=== PATIENT | male | born 1985 | race Caucasian/White ===

== ENCOUNTER 2018-08-23 09:07 | Emergency (ER) | payer SELFPAY ==
[2018-08-23] MEDS ORDERED: Sodium Chloride 0.9% 10 ML Syringe FLUSH PRN (09:30)
--- NOTE | 2018-08-23 09:58 | EDM.PDOC ---
ED HPI GENERAL MEDICAL PROBLEM - General Chief Complaint: Upper Extremity Injury/Pain Stated Complaint: INFECTION IN ARM Time Seen by Provider: 08/23/18 09:27 Source of Information: Reports: Patient History Limitations: Reports: No Limitations - History of Present Illness INITIAL COMMENTS - FREE TEXT/NARRATIVE: Patient is a 33-year-old male presents ED complaining of redness, swelling, and mild pain to the dorsal aspect of his right hand. This past Thursday he was vaccinating cattle and accidentally stuck the needle in his hand. The vaccination was pyramid 5 + presponse sQ. over the past few days the swelling and redness has worsened. He has felt feverish at times. No doctor in a few with admission to the ED. No redness streaking up his arm. No history of MRSA in the past. Has not noted any decreased range of motion of the wrist, fingers, and elbow. He offers no additional complaints. 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 ED EXAM, GENERAL - Physical Exam Exam: See Below Exam Limited By: No Limitations General Appearance: Alert, WD/WN, No Apparent Distress Ears: Hearing Grossly Normal Nose: Normal Inspection Throat/Mouth: Normal Voice, No Airway Compromise Neck: Normal Inspection, Supple Respiratory/Chest: No Respiratory Distress, Lungs Clear, Normal Breath Sounds, No Accessory Muscle Use, Chest Non-Tender Cardiovascular: Normal Peripheral Pulses, Regular Rate, Rhythm, No Murmur Peripheral Pulses: 2+: Radial (R) Extremities: Other (Swelling to the dorsal aspect of the right hand with redness noted. Redness does extend just past the wrist. He is able to flex and extend at the wrist with no issues. Sensory is intact. No further motor deficits noted. No drainage or open wound present.) Course - Vital Signs Last Recorded V/S: Last Vital Signs Temp 98.4 F 08/23/18 09:19 Pulse 73 08/23/18 09:19 Resp 18 08/23/18 09:19 BP 117/92 H 08/23/18 09:19 Pulse Ox 96 08/23/18 09:19 - Orders/Labs/Meds Orders: Active Orders 24 hr Category Date Time Status Peripheral IV Care [RC] . DIRECTED Care 08/23/18 09:30 Active Doxycycline [Vibramycin] 100 mg Med 08/23/18 09:59 Active Sodium Chloride 0.9% [Normal Saline] 100 ml IV ONETIME Sodium Chloride 0.9% [Saline Flush] Med 08/23/18 09:30 Active 10 ml FLUSH ASDIRECTED PRN Peripheral IV Insertion Adult [OM.PC] Routine Oth 08/23/18 09:30 Ordered Medication Orders Doxycycline Hyclate 100 mg/ (Sodium Chloride) 100 mls @ 100 mls/hr IV ONETIME ONE Stop: 08/23/18 10:58 Last Admin: 08/23/18 10:07 Dose: 100 mls/hr Sodium Chloride (Saline Flush) 10 ml FLUSH ASDIRECTED PRN PRN Reason: Keep Vein Open Last Admin: 08/23/18 10:08 Dose: 10 ml Labs: Laboratory Tests 08/23/18 08/23/18 Range/Units 09:40 09:40 WBC 10.37 H (4.23-9.07) K/mm3 RBC 5.22 (4.63-6.08) M/mm3 Hgb 15.6 (13.7-17.5) gm/L Hct 43.5 (40.1-51.0) % MCV 83.3 (79.0-92.2) fl MCH 29.9 (25.7-32.2) pg MCHC 35.9 H (32.2-35.5) g/dl RDW Std Deviation 38.3 (35.1-43.9) fL Plt Count 321 (163-337) K/mm3 MPV 9.4 (9.4-12.3) fl Neutrophils % (Manual) 66 H (40-60) % Band Neutrophils % 0 (0-10) % Lymphocytes % (Manual) 30 (20-40) % Atypical Lymphs % 0 % Monocytes % (Manual) 3 (2-10) % Eosinophils % (Manual) 0 L (0.8-7.0) % Basophils % (Manual) 1 (0.2-1.2) Platelet Estimate Adequate Plt Morphology Comment Normal RBC Morph Comment Normal Sodium 139 (136-145) mEq/L Potassium 4.2 (3.5-5.1) mEq/L Chloride 102 (98-107) mEq/L Carbon Dioxide 27 (21-32) mEq/L Anion Gap 14.2 (5-15) BUN 17 (7-18) mg/dL Creatinine 1.0 (0.7-1.3) mg/dL Est Cr Clr Drug Dosing 115.32 mL/min Estimated GFR (MDRD) > 60 (>60) mL/min BUN/Creatinine Ratio 17.0 (14-18) Glucose 107 H (74-106) mg/dL Calcium 8.8 (8.5-10.1) mg/dL Total Bilirubin 0.7 (0.2-1.0) mg/dL AST 37 (15-37) U/L ALT 55 (16-63) U/L Alkaline Phosphatase 93 (46-116) U/L C-Reactive Protein 8.6 H* (<1.0) mg/dL Total Protein 7.7 (6.4-8.2) g/dl Albumin 3.8 (3.4-5.0) g/dl Globulin 3.9 gm/dL Albumin/Globulin Ratio 1.0 (1-2) Meds: Medications Generic Name Dose Route Start Last Admin Trade Name Freq PRN Reason Stop Dose Admin Doxycycline Hyclate 100 mg/ 100 mls @ 100 mls/hr 08/23/18 09:59 08/23/18 10: 07 Sodium Chloride IV 08/23/18 10:58 100 mls/hr ONETIME ONE Administration Sodium Chloride 10 ml 08/23/18 09:30 08/23/18 10:08 Saline Flush FLUSH 10 ml ASDIRECTED PRN Administration Keep Vein Open Discontinued Medications Generic Name Dose Route Start Last Admin Trade Name Freq PRN Reason Stop Dose Admin Doxycycline Hyclate 100 mg 08/23/18 09:59 08/23/18 10:08 Vibramycin PO 08/23/18 10:00 100 mg ONETIME ONE Administration - Re-Assessments/Exams Free Text/Narrative Re-Assessment/Exam: Patient has cellulitis to the dorsal aspect of the right hand. He has complained of some subjective fever symptoms. Redness localized with no streaking up his arm. He has full mobility of the wrist. Poison control has been contacted by Nursing staff with no concerns for type of vaccination. Vaccination in the needle/syringe was pyramid 5+Preponse Sq. Treat cellulitis for normal tex to the skin. I have ordered basic labs. Ordered doxycycline 100mg IV and 100mg PO. Labs reviewed: White blood cell count 10.37, hemoglobin and platelets are normal. Neutrophil percentage is slightly elevated at 66 with no left shift. Chemistry panel essentially normal. CRP 8.6. Return precautions were discussed with the patient. Patient had no further questions concerns. Agrees with plan. Discharge instructions as documented. Departure - Departure Time of Disposition: 10:01 Disposition: Home, Self-Care 01 Condition: Good Clinical Impression: Cellulitis and abscess of hand - Discharge Information Prescriptions: Doxycycline [Vibramycin] 100 mg PO BID #20 cap Instructions: Cellulitis, Adult Referrals: PCP,None [Primary Care Provider] - Forms: ED Department Discharge Additional Instructions: Take doxycycline 100 mg one tab twice a day for the next 10 days. Redness and swelling may worsen over the next 48 hours. But should improve over the next 72. Please monitor for redness streaking up the arm, fever, worsening pain, or any drainage. If so please return back to the ED for reevaluation. Utilize ibuprofen 600 mg 4 times a day when necessary for pain. - My Orders Last 24 Hours: My Active Orders 08/23/18 09:30 Peripheral IV Care [RC] . DIRECTED Sodium Chloride 0.9% [Saline Flush] 10 ml FLUSH ASDIRECTED PRN Peripheral IV Insertion Adult [OM.PC] Routine 08/23/18 09:59 Doxycycline [Vibramycin] 100 mg Sodium Chloride 0.9% [Normal Saline] 100 ml IV ONETIME - Assessment/Plan Last 24 Hours: My Active Orders 08/23/18 09:30 Peripheral IV Care [RC] . DIRECTED Sodium Chloride 0.9% [Saline Flush] 10 ml FLUSH ASDIRECTED PRN Peripheral IV Insertion Adult [OM.PC] Routine 08/23/18 09:59 Doxycycline [Vibramycin] 100 mg Sodium Chloride 0.9% [Normal Saline] 100 ml IV ONETIME
[2018-08-23] MEDS ORDERED: Doxycycline 100 MG in Sodium Chloride 0.9% 100 ML IV ONE (09:59)
[2018-08-23] MEDS ORDERED: Doxycycline 100 MG Cap PO ONE (09:59)
== END 2018-08-23 11:10 | disposition home or self-care (01) ==
LOC: JD.ED 09:07
DX: L03.113 Cellulitis of right upper limb (principal)
CPT/HCPCS: 36415; 80053; 85007; 85027; 86140; 96365; 99283; A9270; J3490; J7030